=== PATIENT | female | born 1945 | race Caucasian/White ===

== ENCOUNTER → 2021-11-12 | Outpatient (CLI) | payer MEDICARE, OTHER ==
[~2021-11-12] MED LIST: ALBUTEROL2.5 MG/3 M INH; ASCORBIC ACID500 MG PO; ASPIRIN EC81 MG PO; CALTRATE 600 +1 EAC1 PO; CETIRIZINE HCL10 MG PO; COLACE CLEAR50 MG PO; FOLIC ACID 1 MG1 MG PO; FUROSEMIDE40 MG PO; HYDROCODON-ACE1 EAC6 PO; IPRATROPIU0.2 MG/1 M NEB; LIPITOR20 MG PO; MAGNESIUM400 M2 PO; MEGA BIOTIN10000 MCG PO; METHOTREXA25 MG/1 ML INJ; ONDANSETRON HCL4 MG PO; POTASSIUM CHLO10 MEQ PO; PREDNISONE1 MG PO; PROTONIX 40 MG40 M1 PO; SPIRONOLACTONE25 MG PO; TUMS200 MG PO; VENLAFAXINE HC150 M1 PO
== END ==
LOC: KOH-I 11:54
DX: M79.671 Pain in right foot (principal); M19.071 Primary osteoarthritis, right ankle and foot
CPT/HCPCS: 73630